=== PATIENT | female | born 1965 | race Caucasian/White ===

== ENCOUNTER → 2016-11-19 | Outpatient (CLI) | payer BC ==
[~2016-11-19] VITALS: Ht 167.6 cm; Wt 63.5 kg
[~2016-11-19] MED LIST: APAP500 PO
--- NOTE | ~2016-11-19 | HPC ---
[facility] [place] [address] PAIN MANAGEMENT CONSULTATION Name: CARLYLE ARCHIBALD [facility] [id number] Admission: 11/19/16 Attend Phys: Isak Landers DO Discharge: Date of : 67 Report #: [id number] THIS REPORT FOR: //name// CC: Moises Landers Referring physician DATE OF SERVICE: 11/19/2016 CHIEF COMPLAINT: Neck pain, left upper extremity pain and paresthesias. HISTORY OF PRESENT ILLNESS: As you know, the patient is a very pleasant 51-year-old female with longstanding history of neck pain, left upper extremity pain and paresthesias. She indicates pain began somewhere in 03/2016. She denies injury or trauma that may have led to symptoms. She had trialed conservative medical therapy with stretching exercises at home, even trial [id number] medications without improvement in symptoms. She has been sent for formalized physical therapy, which she has attended five sessions with no improvement. Due to lack of improvement with conservative treatment, she was subsequently referred to Neurosurgery for evaluation. She was seen in consultation by [facility] on 11/17/2016, diagnosed as cervical radiculopathy. She then established an appointment at our [facility] office to undergo cervical epidural injection under fluoroscopic guidance due to timing conflicts. She has returned today to our [place] pain management clinic to undergo cervical epidural injection under fluoroscopic guidance. She is indicating pain today level of 3/10, exacerbated with lifting, activities and sleeping, improves with heat and cold compresses and stretching. The patient rates pain today level of 3-4/10. She has had no injury, no new trauma since her visit on 11/17/2016. ALLERGIES: No known drug allergies. CURRENT MEDICATIONS: Tylenol ES. SOCIAL HISTORY: The patient denies tobacco, alcohol, IV or illicit drug use. She is working, not receiving workmen's compensation. She is unaccompanied today. IMAGING: No new imaging available. PHYSICAL EXAMINATION: VITAL SIGNS: Blood pressure 140/90, pulse 64, respiratory rate 16, unlabored. The patient is 100% on room air, height 5 feet 6 inches tall, weight 140 pounds, BMI calculated 22.6. GENERAL: Well-developed, well-nourished, well-hydrated 51-year-old female appearing stated age, placing current pain score 3-4/[address] [address] PAIN MANAGEMENT CONSULTATION Name: CARLYLE ARCHIBALD Room #: REG CLI [facility]#: [id number] Admission: 11/19/16 Attend Phys: Isak Landers DO Discharge: Date of : 67 Report #: [id number] HEENT: Normocephalic, atraumatic. Pupils are equal, round, reactive to light. Extraocular muscles are intact. Sclerae nonicteric, without injection. EXTREMITIES: Show no clubbing, no cyanosis, no edema. MUSCULOSKELETAL: Upper extremity strength appears equal and symmetrical 5/5, intact to light touch from C5 through T1 dermatomes except on the left where there is some tactile sensation loss at the C6 distribution. Spurling's test is positive on left. Cervical provocation causes minor changes in pain on the left. ASSESSMENT: 1. Cervical radiculopathy. 2. Cervical spondylosis with radicular symptoms. 3. Cervical spinal stenosis. 4. Chronic intractable pain. PLAN: 1. The patient has returned today in followup visit requesting to undergo cervical epidural injection. We have made the patient's appointment here at our [facility] office to accommodate her schedule. She was unable to take time off after our visit on the which we do request patients due to increased efficacy of injections. She was established at today's appointment here at our [facility] office to undergo a cervical epidural injection and then take the remaining portion of the day off to rest and recover. The patient returns today for this injection, placing pain score 3-4/10. 2. The patient was advised risks and benefits of a cervical epidural injection. These risks include but are not necessarily limited to bleeding, bruising, infection, worsening pain, no relief of pain, also risk of temporary or permanent muscle weakness, temporary or permanent nerve damage, possible paralysis and . The patient states understood and wished to proceed. 3. No medication changes were made at today's visit, the patient to continue current medical therapy as previously prescribed. 4. We will see the patient back in followup visit at our [place] office in 2 weeks. At that time, review efficacy of today's cervical epidural injection and determine if any next in the series of cervical injections might be warranted. PROCEDURE NOTE: DESCRIPTION OF PROCEDURE: C7-T1 cervical epidural steroid injection under fluoroscopic guidance. This is the first procedure of the first series that the patient is undergoing. After obtaining written consent, the patient was taken back to the fluoroscopy suite and placed in a prone position with separate pillows under chest and forehead to decrease cervical lordosis. The skin overlying the cervical area [address] [address] PAIN MANAGEMENT CONSULTATION Name: CARLYLE ARCHIBALD Room #: REG CLDante Luong#: [id number] Admission: 11/19/16 Attend Phys: Isak Landers DO Discharge: Date of : 67 Report #: [id number] was prepped and draped in an aseptic fashion. The C7-T1 vertebral interspace was identified by AP fluoroscopy. The skin and subcutaneous tissue overlying the target site of injection was anesthetized using 3 mL of 1% lidocaine. A 20-gauge 3-1/2 inch Tuohy needle was advanced under fluoroscopic guidance toward the epidural space using a midline approach. The epidural space was identified using a loss of resistance to air technique. After negative aspiration for heme or cerebrospinal fluid, a total of 1 mL of Omnipaque was injected. A cervical epidurogram was confirmed using AP and oblique fluoroscopy. After negative aspiration for heme or cerebrospinal fluid, 5 mL of a solution containing 2 mL 40 mg per mL 80 mg total triamcinolone, 3 mL lidocaine 1% was injected in increments. Contrast spread was noted from posterior epidural space. The needle was then retracted approximately mcfp and the needle track was flushed with 1 mL of 1% lidocaine. There were no apparent new sensory deficits in the upper extremities present following the procedure. A sterile bandage was placed over the injection site. The heart rate, pulse oximetry and blood pressure were continuously monitored after the procedure. There were no apparent complications. The patient tolerated the procedure well and was carefully escorted in the recovery room in stable condition. After meeting discharge criteria, the patient was discharged home. By: [id number] Isak Landers DO /nt
[2016-11-19 08:34] VITALS: BP 140/90
== END | disposition home or self-care (01) ==
LOC: PAIN 08:14
DX: M47.22 Other spondylosis with radiculopathy, cervical region (principal); M48.02 Spinal stenosis, cervical region; G89.29 Other chronic pain